=== PATIENT | female | born 1945 | race Caucasian/White ===

== ENCOUNTER 2017-04-12 07:53 | Day surgery (SDC) | payer OTHER ==
--- NOTE | 2017-04-11 08:37 | MH ---
cc: ANTHONY WEINBERG M.D., R. STEVEN M.D. DATE OF ADMISSION: 04/12/2017 This is for an outpatient thoracentesis being scheduled for next week in radiology. HISTORY Mrs. Craig is a 72-year-old white female, smoked all of her adult life on and off but fairly consistently over about 40 years. Has never been previously diagnosed with a significant lung disease, although she did have pneumonia several years ago. She has also had no recent pulmonary symptoms of note but she had a CT scan of her abdomen on April 04 because she was having lower abdominal cramping pain. Her web application developer ordered that. She has a history longstanding of fibroid tumors of the uterus. That CT scan revealed a large uterus but also significant right pleural effusion. She is referred for evaluation of the fluid. PAST MEDICAL HISTORY Other than that pneumonia and a longstanding smoking history she has had no pulmonary history. She has an occasional cough but that is better since she quit smoking a month ago. She has had no hemoptysis. No chest pain, mild dyspnea on exertion. No prior history of malignancy. No significant prior cardiovascular history or liver disease. PAST SURGERIES Hernia. ALLERGIES None known. PRESCRIPTION MEDICATIONS None. FAMILY HISTORY Father of complications of diabetes, mother of cancer. Brother had melanoma metastatic to the lung. His sister of hepatitis C. She has four children, in good health. SOCIAL HISTORY , remarried, lives with her Don. They have a dog. No alcohol use. Smoking noted. 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 REVIEW OF SYSTEMS Weight has been steady. No loss of weight but her appetite is poor. No visual complaints other than some intermittent blurring. No chronic edema. No disabling arthritis. PHYSICAL EXAMINATION VITAL SIGNS: 98/62, pulse 72, temps 97, R 18, sat 97% room air. HEENT: Sclerae anicteric. Pharynx is clear. NECK: No adenopathy in the neck or supraclavicular region. LUNGS: Breath sounds are diminished at the right base, otherwise, clear. No wheezes, rales or congestion. HEART: Regular rhythm. No harsh murmur. No audible S3. EXTREMITIES: No edema or cyanosis. Mrs. Craig has a fairly large right pleural effusion actually found by chance on a CT scan that was being done for lower abdominal pain. She has followup with her web application developer in that regard. ASSESSMENT/PLAN I have suggested proceeding with a diagnostic thoracentesis. Those orders are being put in for radiology with ultrasound next week. Fluid orders are in, lab reports are in and will await the results of those studies with followup after that to review. Further diagnostic and/or therapeutic intervention will depend on this initial diagnostic study. R. Get Dias MD RSStephen/EO /12:59 PM /8:32 AM
[~2017-04-12 07:53] MED LIST: CHOL1TAB42 PO; CO-QCAP PO; DIGE1CAP6 PO; HYDR-3533 PO; KELP150T PO; MELO-1 PO; MOBI15TA PO; MULTTAB67 PO; [UNRECOGNIZED DRUG - OTHER] PO
[2017-04-12] MEDS ORDERED: LIDOCAINE HCL 1% 20 ML VIAL ONE (09:33)
[2017-04-12 09:55] VITALS: BP 127/71; PULSE 61; RESP 18; TEMP 98; O2SAT 100
--- NOTE | 2017-04-12 10:01 | RADRPT ---
EXAM DATE/TIME: 04/12/2017 09:42 [facility] COMPARISON: No previous studies available for comparison. INDICATIONS : Evaluate for pneumothorax. MEDICAL HISTORY : Former smoker. SURGICAL HISTORY : None. ENCOUNTER: Initial ACUITY: 1 day PAIN SCORE: 0/10 LOCATION: Bilateral chest FINDINGS: Minimal parenchymal changes are present in the right base following thoracentesis. There is no pneum othorax. The left lung is clear. CONCLUSION: Negative for pneumothorax. Get Griggs MD FACR on April 12, 2017 at 9:59 Board Certified Radiologist. This report was verified electronically.
--- NOTE | 2017-04-12 10:04 | RADRPT ---
EXAM DATE/TIME: 04/12/2017 08:20 [facility] COMPARISON: No previous studies available for comparison. EXTERNAL COMPARISON: [facility], CT ABDOMEN AND PELVIS, Apr 04 2017 INDICATIONS : Pleural effusion. MEDICAL HISTORY : Hypercholesterolemia. Pnemonia. SURGICAL HISTORY : Hernia repair. ENCOUNTER: Initial ACUITY: 1 month PAIN SCORE: 2/10 LOCATION: Right chest FLUID: Total volume of 500 cc of clear, yellow fluid was removed. Fluid was sent to lab for ordered studies. TECHNIQUE: 1. Ultrasound guidance for thoracentesis. 2. Thoracentesis. The risks, benefits, and alternatives to ultrasound guided thoracentesis were explained to the patien t in lay simple terms, including the risk of bleeding and infection. Written and verbal informed con sent was obtained. Appropriate area for thoracentesis was marked under ultrasound guidance with the patient in the uprig ht position. Overlying skin was prepped and draped in the usual sterile fashion and with local anest hetic, a dermatotomy was made with an 11 blade scalpel. A 6 Persian thoracentesis catheter was placed in the pleural space and fluid was removed. Catheter was then removed and a sterile dressing applie d. There were no immediate complications. The patient tolerated the procedure well and the left the ultrasound suite in stable condition. Chest radiograph is to be obtained. CONCLUSION: Uncomplicated ultrasound guided thoracentesis. Fluid was sent for ordered studies. Get Griggs MD FACR on April 12, 2017 at 10:01 Board Certified Radiologist. This report was verified electronically.
[2017-04-12 10:10] VITALS: BP 123/71; PULSE 56; RESP 18; O2SAT 100
[2017-04-12 11:36] LABS: TOTAL PROTEIN,PLEURAL FLUID 4.6 GM/DL
[2017-04-12 14:09] LABS: PLEURAL FLUID LYMPHS 75 %
== END 2017-04-12 10:55 | disposition home or self-care (01) ==
LOC: HRAD 07:53 → HRIP 07:56 → HRAD 10:55
PROVIDERS: ATTEND Internal Medicine
DX: J90 Pleural effusion, not elsewhere classified (principal); E78.00 Pure hypercholesterolemia, unspecified; Z87.891 Personal history of nicotine dependence
CPT/HCPCS: 32555; 71010; 82465; 82945; 83615; 84157; 87015; 87070; 87102; 87116; 87205; 87206; 88112; 88305; 89051; C1729

== ENCOUNTER 2017-05-20 07:40 | Day surgery (SDC) | payer OTHER ==
[2017-05-20 08:25] VITALS: BP 120/79; PULSE 66; RESP 14; TEMP 97.9; O2SAT 97
[2017-05-20 09:20] VITALS: BP 131/77; PULSE 58; RESP 18; TEMP 97.8; O2SAT 97
[2017-05-20] MEDS ORDERED: LIDOCAINE HCL 1% 20 ML VIAL ONE (09:23)
[2017-05-20 09:35] VITALS: BP 129/77; PULSE 61; RESP 18; O2SAT 98
--- NOTE | 2017-05-20 10:02 | RADRPT ---
EXAM DATE/TIME: 05/20/2017 09:06 [facility] COMPARISON: CHEST EXPIRATION ONLY, April 12, 2017, 9:42. INDICATIONS : Post right-side thoracentesis. MEDICAL HISTORY : Hypercholesterolemia. SURGICAL HISTORY : Hernia repair. ENCOUNTER: Initial ACUITY: 1 day PAIN SCORE: 0/10 LOCATION: Right chest FINDINGS: A single portable frontal view of the chest shows a persistent parenchymal consolidation within the r ight lung base. No pneumothorax. Left lung is clear. No effusion. Heart is normal in size. CONCLUSION: 1. No pneumothorax. 2. Right lower lobe parenchymal consolidation. William Vivar Jr., MD on May 20, 2017 at 9:55 Board Certified Radiologist. This report was verified electronically.
[2017-05-20 10:26] LABS: TOTAL PROTEIN,PLEURAL FLUID 4.3 GM/DL
[2017-05-20 11:53] LABS: PLEURAL FLUID LYMPHS 40 %
--- NOTE | 2017-05-20 16:38 | RADRPT ---
EXAM DATE/TIME: 05/20/2017 08:18 [facility] COMPARISON: No previous studies available for comparison. INDICATIONS : Right pleural effusion. MEDICAL HISTORY : Chronic obstructive pulmonary disease. Hypercholesterolemia. Diverticulitis. SURGICAL HISTORY : Hernia repair. ENCOUNTER: Initial ACUITY: 1 day PAIN SCORE: 2/10 LOCATION: Right chest FLUID: Total volume of 600 cc of clear, yellow fluid was removed. Fluid was sent to lab for ordered studies. TECHNIQUE: 1. Ultrasound guidance for thoracentesis. 2. Thoracentesis. The risks, benefits, and alternatives to ultrasound guided thoracentesis were explained to the patien t in lay simple terms, including the risk of bleeding and infection. Written and verbal informed con sent was obtained. Appropriate area for thoracentesis was marked under ultrasound guidance with the patient in the uprig ht position. Overlying skin was prepped and draped in the usual sterile fashion and with local anest hetic, a dermatotomy was made with an 11 blade scalpel. A 6 Bengali thoracentesis catheter was placed in the pleural space and fluid was removed. Catheter was then removed and a sterile dressing applie d. There were no immediate complications. The patient tolerated the procedure well and the left the ultrasound suite in stable condition. Chest radiograph is to be obtained. CONCLUSION: Uncomplicated ultrasound guided thoracentesis. Jaylen Salmeron MD on May 20, 2017 at 16:37 Board Certified Radiologist. This report was verified electronically.
== END 2017-05-20 10:21 | disposition home or self-care (01) ==
LOC: HRAD 07:40 → HRIP 07:46 → HRAD 10:21
PROVIDERS: ATTEND Internal Medicine
DX: J90 Pleural effusion, not elsewhere classified (principal); J44.9 Chronic obstructive pulmonary disease, unspecified
CPT/HCPCS: 32555; 71010; 82945; 82947; 83615; 84155; 84157; 87015; 87070; 87102; 87116; 87205; 87206; 88112; 88305; 89051; C1729